=== PATIENT | female | born 1995 | race Caucasian/White ===

== ENCOUNTER 2017-04-28 12:26 | Emergency (ER) | payer SELFPAY ==
[2017-04-28 12:36] VITALS: BP 114/74
[2017-04-28] MEDS ORDERED: Albuterol HFA INHALER* 8 gm MDI INH ONE (12:50)
--- NOTE | 2017-04-28 12:50 | UC ---
Respiratory Complaint HPI - HPI Summary HPI Summary: 22 yo female with a hx of childhood asthma presents with a 2 week hx of cough/ wheezing cough at times productive no cp or sob chest does feel tight - History of Current Complaint Chief Complaint: UCRespiratory Stated Complaint: CHEST CONGESTION/PAINFUL BREATHING Time Seen by Provider: 04/28/17 12:40 Hx Obtained From: Patient Hx Last Menstrual Period: 04/13/17 Onset/Duration: Gradual Onset, Lasting Weeks Timing: Constant Severity Initially: Mild Severity Currently: Moderate Pain Intensity: 1 Pain Scale Used: 0-10 Numeric Character: Cough: Productive Aggravating Factors: Exertion, Deep Breaths Alleviating Factors: Nothing Associated Signs And Symptoms: Positive: Wheezing, Nasal Congestion - Allergies/Home Medications Allergies/Adverse Reactions: Allergies Allergy/AdvReac Type Severity Reaction Status Date / Time Adhesive Tape Allergy Rash Verified 04/28/17 12:31 PMH/Surg Hx/FS Hx/Imm Hx Previously Healthy: Yes Respiratory History: Asthma, Bronchitis, Pneumonia - Surgical History Surgical History: Yes Surgery Procedure, Year, and Place: eye surgery @ age 7 - Family History Known Family History: Positive: Hypertension - Social History Alcohol Use: None Substance Use Type: None Smoking Status (MU): Never Smoked Tobacco Review of Systems Constitutional: Negative Skin: Negative Eyes: Negative ENT: Negative Respiratory: Cough Cardiovascular: Negative Gastrointestinal: Negative Genitourinary: Negative Motor: Negative Neurovascular: Negative Musculoskeletal: Negative Neurological: Negative Psychological: Negative All Other Systems Reviewed And Are Negative: Yes Physical Exam Triage Information Reviewed: Yes Appearance: Well-Appearing, No Pain Distress, Well-Nourished Vital Signs: Initial Vital Signs Temp 98.1 F 04/28/17 12:31 Pulse 82 04/28/17 12:31 Resp 16 04/28/17 12:31 BP 114/74 04/28/17 12:31 Pulse Ox 100 04/28/17 12:31 Vital Signs Reviewed: Yes Eyes: Positive: Conjunctiva Clear ENT: Positive: Hearing grossly normal, Nasal congestion, Nasal drainage. Negative: Tonsillar exudate, Trismus, Muffled/hoarse voice Neck: Positive: Supple, Nontender, No Lymphadenopathy Respiratory: Positive: No respiratory distress, No accessory muscle use, Wheezing - with forced expiration Cardiovascular: Positive: RRR, No Murmur. Negative: Tachycardia, Bradycardia Musculoskeletal: Positive: ROM Intact, No Edema Neurological: Positive: Alert, Muscle Tone Normal Psychological Exam: Normal UC Diagnostic Evaluation - Laboratory O2 Sat by Pulse Oximetry: 100 ABG Interpretation: normal/not hyoxic Respiratory Course/Dx - Differential Dx/Diagnosis Provider Diagnoses: acute bronchitis with bronchospasm Discharge - Discharge Plan Condition: Stable Disposition: HOME Prescriptions: Amoxicillin PO (*) [Amoxicillin 875 MG (*)] 875 mg PO BID #20 tab Prednisone [Deltasone] 40 mg PO DAILY #10 tab Patient Education Materials: Acute Bronchitis (ED) Referrals: MIC Clark [Primary Care Provider] - 4 Days (if not better) Additional Instructions: use inhaler as directed recheck for new or worsening symptoms
== END 2017-04-28 13:04 | disposition home or self-care (01) ==
LOC: UCCORT 12:26
DX: J20.9 Acute bronchitis, unspecified (principal); Z91.048 Other nonmedicinal substance allergy status; J45.909 Unspecified asthma, uncomplicated
CPT/HCPCS: 99203; A9270-GY; G0463

== ENCOUNTER 2018-08-07 20:19 | Emergency (ER) | payer SELFPAY ==
[2018-08-07 20:34] VITALS: BP 114/76
--- NOTE | 2018-08-07 20:41 | UC ---
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 SHE NOTES A MILD COUGH THAT MAKES HER THROAT SORE BUT ONLY WHNE SHE COUGHS. FEVER RESOLVED. - History of Current Complaint Chief Complaint: UCRespiratory Stated Complaint: NEEDS CLEARANCE TO GO BACK TO WORK Time Seen by Provider: 08/07/18 20:31 Hx Obtained From: Patient Hx Last Menstrual Period: 08/01/18 Onset/Duration: Gradual Onset Timing: Constant Pain Intensity: 4 - Allergy/Home Medications Allergies/Adverse Reactions: Allergies Allergy/AdvReac Type Severity Reaction Status Date / Time Adhesive Tape Allergy Rash Verified 08/07/18 20:32 Home Medications: Home Medications NK [No Home Medications Reported] 08/07/18 [History Confirmed 08/07/18] PMH/Surg Hx/FS Hx/Imm Hx Previously Healthy: Yes - Surgical History Surgical History: Yes Surgery Procedure, Year, and Place: eye surgery @ age 7 - Family History Known Family History: Positive: Hypertension - Social History Occupation: Employed Full-time Alcohol Use: None Substance Use Type: None Smoking Status (MU): Never Smoked Tobacco - Immunization History Vaccination Up to Date: Yes Review of Systems All Other Systems Reviewed And Are Negative: Yes ENT: Positive: Sore Throat - ONLY WITH COUGHING Respiratory: Positive: Cough Physical Exam Triage Information Reviewed: Yes Appearance: Well-Appearing Vital Signs: Initial Vital Signs Temp 98 F 08/07/18 20:31 Pulse 101 08/07/18 20:31 Resp 16 08/07/18 20:31 BP 114/76 08/07/18 20:31 Pulse Ox 99 08/07/18 20:31 Vital Signs Reviewed: Yes Eyes: Positive: Conjunctiva Clear ENT: Positive: Pharynx normal, TMs normal. Negative: Nasal congestion, Nasal drainage Neck: Positive: Supple, Nontender, No Lymphadenopathy Respiratory: Positive: Lungs clear, Normal breath sounds Cardiovascular: Positive: RRR, No Murmur. Negative: Tachycardia Abdomen Description: Positive: Nontender, No Organomegaly, Soft Bowel Sounds: Positive: Present Musculoskeletal: Positive: ROM Intact Neurological: Positive: Alert Psychological: Positive: Age Appropriate Behavior Skin Exam: Normal Course/Dx - Differential Dx - Multi-Symptom Provider Diagnoses: NORMAL EXAM Discharge - Sign-Out/Discharge Documenting (check all that apply): Patient Departure All imaging exams completed and their final reports reviewed: No Studies - Discharge Plan Condition: Stable Disposition: HOME Patient Education Materials: Normal Exam (ED) Forms: *Work Release Referrals: Xochilt Lopez NP [Primary Care Provider] - If Needed - Billing Disposition and Condition Condition: STABLE Disposition: Home
== END 2018-08-07 20:48 | disposition home or self-care (01) ==
LOC: UCCORT 20:19
DX: R05 Cough (principal); Z91.09 Other allergy status, other than to drugs and biological substances
CPT/HCPCS: 99212; G0463

== ENCOUNTER 2018-10-06 13:34 | Emergency (ER) | payer SELFPAY ==
[2018-10-06 13:45] VITALS: BP 137/68
--- NOTE | 2018-10-06 13:53 | ED ---
Throat Pain/Nasal Congestion - HPI Summary HPI Summary: cold like symptoms for the last 3 weeks. loss of sense of taste for the last two weeks, sense of smell last several days. no dental pain, - History of Current Complaint Chief Complaint: UCGeneralIllness Time Seen by Provider: 10/06/18 13:41 Hx Obtained From: Patient Onset/Duration: Gradual Onset, Lasting Weeks Severity: Moderate Associated Signs And Symptoms: Positive: Wheezing, Sinus Discomfort Cough: Nonproductive - Epiglottits Risk Factors Epiglottis Risk Factors: Negative - Allergies/Home Medications Allergies/Adverse Reactions: Allergies Allergy/AdvReac Type Severity Reaction Status Date / Time Adhesive Tape Allergy Rash Verified 08/07/18 20:32 Home Medications: Home Medications Dm/Acetaminophen/Doxylamine [Nighttime Cold-Flu Rlf Sftgl] 1 each PO ONCE [History Confirmed 10/06/18] PMH/Surg Hx/FS Hx/Imm Hx Previously Healthy: Yes - Surgical History Surgery Procedure, Year, and Place: eye surgery @ age 7 Infectious Disease History: No Infectious Disease History: Denies: Traveled Outside the [place] in Last 30 Days - Family History Known Family History: Positive: Hypertension - Social History Alcohol Use: None Substance Use Type: Reports: None Smoking Status (MU): Never Smoked Tobacco Review of Systems Constitutional: Negative Eyes: Negative ENT: Other Positive: Sore Throat, Other - loss of sense of taste and smell Positive: Shortness Of Breath, Cough Gastrointestinal: Negative Genitourinary: Negative Musculoskeletal: Negative Skin: Negative Neurological: Negative All Other Systems Reviewed And Are Negative: Yes Physical Exam Triage Information Reviewed: Yes Vital Signs On Initial Exam: Initial Vitals Temp Pulse Resp BP Pulse Ox 36.4 C 102 16 137/68 99 10/06/18 13:41 10/06/18 13:41 10/06/18 13:41 10/06/18 13:41 10/06/18 13:41 Vital Signs Reviewed: Yes Appearance: Positive: Well-Appearing Skin: Positive: Warm Head/Face: Positive: Other - left maxillary sinus tenderness Eyes: Positive: Normal ENT: Positive: Tonsillar swelling Neck: Positive: Supple, No Lymphadenopathy Respiratory/Lung Sounds: Positive: Clear to Auscultation Cardiovascular: Positive: Normal Abdomen Description: Positive: Nontender Diagnostics - Vital Signs Vital Signs Temp Pulse Resp BP Pulse Ox 10/06/18 13:41 36.4 C 102 16 137/68 99 - Laboratory Lab Statement: Any lab studies that have been ordered have been reviewed, and results considered in the medical decision making process. EENT Course/Dx - Diagnoses Provider Diagnoses: Strep sore throat, Sinusitis, acute Discharge - Sign-Out/Discharge Documenting (check all that apply): Patient Departure All imaging exams completed and their final reports reviewed: No Studies - Discharge Plan Condition: Fair Disposition: HOME Prescriptions: Amoxicillin PO (*) [Amoxicillin 875 MG (*)] 875 mg PO BID 10 Days #20 tab Patient Education Materials: Strep Throat (ED) Referrals: Xochilt Lopez NP [Primary Care Provider] - - Billing Disposition and Condition Condition: FAIR Disposition: Home
== END 2018-10-06 13:59 | disposition home or self-care (01) ==
LOC: UCCORT 13:34
DX: J32.9 Chronic sinusitis, unspecified (principal); J02.0 Streptococcal pharyngitis; R06.02 Shortness of breath; Z91.048 Other nonmedicinal substance allergy status
CPT/HCPCS: 87651; 99212; G0463